=== PATIENT | female | born 1950 | race Caucasian/White ===

== ENCOUNTER 2019-09-16 06:59 | Day surgery (SDC) | payer OTHER ==
[~2019-09-16] VITALS: Ht 154.9 cm; Wt 90.7 kg
[2019-09-16] MEDS ORDERED: fentaNYL 0.05 MG/ML VIAL ONE (08:29)
[2019-09-16] MEDS ORDERED: LIDOCAINE 2% 100 MG/5 ML UJET TP ONE (08:29)
[2019-09-16] MEDS ORDERED: fentaNYL 0.05 MG/ML VIAL IVP ONE (09:30)
== END 2019-09-16 10:12 | disposition home or self-care (01) ==
LOC: MDS 06:59 → MTU 06:59 → MDS 10:12
PROVIDERS: ATTEND Internal Medicine Gastroenterology
DX: Z12.11 Encounter for screening for malignant neoplasm of colon (principal); D12.0 Benign neoplasm of cecum; K57.30 Diverticulosis of large intestine without perforation or abscess without bleeding; I10 Essential (primary) hypertension; K21.9 Gastro-esophageal reflux disease without esophagitis
CPT/HCPCS: 45380; J3010